=== PATIENT | male | born 1935 | race Caucasian/White ===

== ENCOUNTER 2020-09-09 06:29 | Observation (INO) | payer MEDICARE, BC ==
[~2020-09-09] VITALS: Ht 172.7 cm; Wt 78.6 kg
[2020-09-09] MEDS ORDERED: MESA500C PO ×2 (06:58)
[2020-09-09] MEDS ORDERED: LEVO175T5 PO (06:58)
[2020-09-09] MEDS ORDERED: ATOR40TA78 PO (06:58)
[2020-09-09] MEDS ORDERED: FLEC50TA25 PO (06:58)
[2020-09-09] MEDS ORDERED: VIT1CAPS42 PO (06:58)
[2020-09-09] MEDS ORDERED: MULT-482 PO (06:58)
[2020-09-09 07:07] VITALS: BP 179/95
[2020-09-09] MEDS ORDERED: LIDOCAINE 2%, 20ML ONE (07:27)
[2020-09-09] MEDS ORDERED: FENTANYL PF 100 MCG/2ML ONE (07:27)
[2020-09-09] MEDS ORDERED: MIDAZOLAM 1 MG/ML, 5ML ONE (07:27)
[2020-09-09] MEDS ORDERED: CEFAZOLIN PMX 1GM/50ML 50 ML ONE (07:27)
[2020-09-09] MEDS ORDERED: CEFAZOLIN 1,000 MG ONE (07:27)
[2020-09-09 07:36] LABS: BASOPHILS % (AUTO) 0 % (0-1); EOSINOPHILS % (AUTO) 3 % (1-7); LYMPHOCYTES % (AUTO) 9 % (22-44); MEAN CORPUSCULAR HEMOGLOBIN 35.4 pg (27.5-34.5); MEAN CORPUSCULAR HGB CONC 33.7 g/dL (33.2-36.2); MEAN PLATELET VOLUME 10.5 fL (7.4-10.4); MONOCYTES % (AUTO) 16 % (2-9); NEUTROPHILS % (AUTO) 73 % (42-75); PLATELET COUNT 210 x10^3/uL (130-400); RED BLOOD COUNT 4.83 x10^6/uL (4.38-5.82); RED CELL DISTRIBUTION WIDTH 12.4 % (9.4-14.8)
[2020-09-09 07:44] LABS: INTERNATIONAL NORMALIZED RATIO 1.02 (0.93-1.1); PROTHROMBIN TIME 10.9 Seconds (9.6-11.5)
[2020-09-09 07:48] LABS: ANION GAP 4 mmol/L (5-15); CALCIUM 8.9 mg/dL (8.5-10.1); CHLORIDE 105 mmol/L (98-107); CREATININE 0.83 mg/dL (0.7-1.3)
[2020-09-09 08:03] LABS: MD MORPH REVIEW ONLY
[2020-09-09 08:04] LABS: <PLATELET ESTIMATE> ADEQUATE; LARGE PLATELETS 1+
[2020-09-09] MEDS ORDERED: [UNRECOGNIZED DRUG - REMARK] MC PRN (10:00)
[2020-09-09] MEDS: CEFAZOLIN PMX 1GM/50ML 50 ML IVPB SCH ×2 (15:30→23:37)
[2020-09-09] MEDS ORDERED: ACETAMINOPHEN 325 MG TABLET ONE (16:30)
[2020-09-09 17:16] VITALS: BP 166/89
[2020-09-09] MEDS: SODIUM CHLORIDE 0.9% 1,000 ML IV SCH ×2 (17:30→23:00)
[2020-09-09 18:37] VITALS: BP 145/76
[2020-09-09 19:22] VITALS: BP 150/80
[2020-09-09] MEDS: FLECAINIDE 50MG TABLET PO SCH (19:56)
[2020-09-09] MEDS: SODIUM CHLORIDE FLUSH 10ML SYR IVF SCH (20:00)
[2020-09-09 20:10] VITALS: BP 149/79
[2020-09-09] MEDS ORDERED: ATORVASTATIN 40 MG TABLET PO SCH (21:00)
[2020-09-09] MEDS ORDERED: MESALAMINE 250 MG CAPSULE.ER PO SCH (21:00)
[2020-09-10 01:06] VITALS: BP 163/79
[2020-09-10] MEDS ORDERED: LEVOTHYROXINE 175 MCG TABLET PO SCH (06:00)
[2020-09-10] MEDS: SODIUM CHLORIDE 0.9% 1,000 ML IV SCH (07:24)
[2020-09-10] MEDS ORDERED: ACET-2065 PO (08:03)
[2020-09-10] MEDS: FLECAINIDE 50MG TABLET PO SCH (08:05)
[2020-09-10] MEDS: SODIUM CHLORIDE FLUSH 10ML SYR IVF SCH (08:05)
[2020-09-10 08:07] VITALS: BP 139/79
[2020-09-10] MEDS ORDERED: ACETAMINOPHEN 325 MG TABLET PO PRN (08:30)
[2020-09-10] MEDS ORDERED: MESALAMINE 250 MG CAPSULE.ER PO SCH (09:00)
[2020-09-10] MEDS ORDERED: MULTIVITAMIN 1 TABLET PO SCH (09:00)
== END 2020-09-10 14:21 | disposition home or self-care (01) ==
LOC: CACL 06:29 → ORIP 09:48 → 5SO 16:42 → DCLOUNGE 09-10 10:59
PROVIDERS: ADMIT Internal Medicine Cardiovascular Disease; ATTEND Internal Medicine Cardiovascular Disease
DX: I49.5 Sick sinus syndrome (principal); I48.0 Paroxysmal atrial fibrillation; R55 Syncope and collapse; I10 Essential (primary) hypertension; F10.10 Alcohol abuse, uncomplicated; Z79.899 Other long term (current) drug therapy
CPT/HCPCS: 33208; 33286; 36415; 71045; 71046; 80048; 85025; 85610; 96365; 96366; 99156; 99157; C1779; C1785; C1892; G0378; J0690; J2250; J3010; J3490